=== PATIENT | male | born 1950 | race Two or more races ===

== ENCOUNTER 2018-08-25 10:44 | Outpatient (AMBR) | payer MEDICARE, MEDICAID, SELFPAY ==
--- NOTE | 2018-08-25 11:49 | PTNOTE_ITS ---
PT OP Initial Eval Patient Information Pediatric or Adult Patient: Adult PT >13 Visit Reasons: lumbago with sciatica Medical Diagnosis: m54.41 Lumbago Treatment Dx #1: pain on the R anterior thigh Start of Care: 08/25/18 Date of Onset: 07/25/2018 Initial Assessment Subjective 68 y/o male who had been complaining of L anterior thigh pain and in the groin area. Daughter is with the patient and is interpreting for the patient. He said it has been for years now. He went to different doctors including chiropractor but its not helping him. As of this time he had steroid shot and it does help him temporarily. MD states that he will try steroid shot and attempt PT as well hence the referral for Physical therapy. As per patient the pain fluctuates it is better in the morning and worst in the evening. With PS 10/10 as the worst pain and 6/10 as least pain. Xray was done on 05/11/2018 and shows small rounded calcification of the lateral to the roof of the Right acetabulum. Patient has difficulty doing STS due to pain and he has trouble sleeping because of pain. Objective Pain on the groin area on the RLE and radiates towards the anterior thigh. (-) SLR Ms strength on RLE hip flexors 4+/5 ms strength on RLE hip extensors 4+/5 Assessment Patient is showing symptoms of femoroacetabular impingement. Patient will need physical therapy for pain management utilizing modalities, manual therapy. stretching and strengthening ex. Patient were educated that we will attempt 10- 15 tx session and if there are no changes we will refer him back to his PCP. Patient and daughter verbalized understanding. Short Term and Architectural Intern Goals 1. to decrease the frequency of pain and PS to 2/10 to be able for the patient to perform his Functional mobility with less difficulty 2.To increase ms strength on R hip flexors and extensors to 5/5 2. I with HEP Treatment Plan Thera ex Modalities (hmp. us, estim) Manual tx Hep Frequency and Duration 2x/wk x 6 weeks Certification Dates: 08/25/2018 to 11/22/2018
== END 2018-08-25 23:59 | disposition home or self-care (01) ==
PROVIDERS: PCP Family Medicine; Referring Provider Family Medicine; Visit Provider Family Medicine
DX: M54.41 Lumbago with sciatica, right side (principal)
CPT/HCPCS: 97162

== ENCOUNTER 2018-09-22 10:00 | Outpatient (AMBR) | payer MEDICARE, MEDICAID, SELFPAY ==
--- NOTE | 2018-09-01 09:32 | PT.ODAYNRPT ---
PT Outpatient Daily Note Date of Service: September 01, 2018 OP Daily Note Pediatric or Adult Patient: Adult PT >13 Visit Reasons: lumbago Outpatient Physical Therapy Treatment Date: 09/01/18 Subjective: Patient has pain on the R groin area Objective: pls see FS Assessment: Patient were given strengthening ex on RLE and HEP for self stretching. Daughter accompany the patient and were able to interpret for the patient. Patient brought the cd for his imaging and this therapist were able to verify the small calcification on the lateral roof of the acetabulum. Patient has pain on the R groin area. Plan: to continue POC toward goals. Pain Present Currently: Yes Length of Time (minutes) of Treatment: 30 Minutes
--- NOTE | 2018-09-07 14:20 | PT.ODAYNRPT ---
PT Outpatient Daily Note Date of Service: September 07, 2018 OP Daily Note Pediatric or Adult Patient: Adult PT >13 Visit Reasons: lumbago Outpatient Physical Therapy Treatment Date: 09/07/18 Subjective: No new complaints Objective: Pls see FS for therapy procedure Assessment: Patient were given stretching and strengthening ex on BLE focusing more on hip abductors and VMO strengthening. Daughter is with the patient were is interpreting for the patient. Patient needs restbreaks as needed due to fatigue. Patient were educated on self stretching at home. Plan: to continue POC toward goals. Pain Present Currently: Yes Length of Time (minutes) of Treatment: 30 Minutes Office Procedures PT Procedures PT Date of Service: 09/01/18 Therapeutic Exercise 30 minutes: Yes
--- NOTE | 2018-09-07 14:24 | PTNOTE_ITS ---
PT Outpatient Daily Note Date of Service: September 07, 2018 OP Daily Note Pediatric or Adult Patient: Adult PT >13 Visit Reasons: lumbago Outpatient Physical Therapy Treatment Date: 09/07/18 Subjective: No new complaints Objective: Pls see FS for therapy procedure Assessment: Patient were given stretching and strengthening ex on BLE focusing more on hip abductors and VMO strengthening. Daughter is with the patient were is interpreting for the patient. Patient needs restbreaks as needed due to fa tigue. Patient were educated on self stretching at home. Plan: to continue POC toward goals. Pain Present Currently: Yes Length of Time (minutes) of Treatment: 30 Minutes Office Procedures PT Procedures PT Date of Service: 09/01/18 Therapeutic Exercise 30 minutes: Yes
--- NOTE | 2018-09-09 09:36 | PT.ODAYNRPT ---
PT Outpatient Daily Note Date of Service: September 09, 2018 OP Daily Note Visit Reasons: lumbago Outpatient Physical Therapy Treatment Date: 09/09/18 Subjective: pt doing well as he had no complaints. pt came in with daughter. Objective: see flow sheet. Assessment: pt demonstrates good mobility with getting on and off the TG machine with no assistance. pt had difficulty understanding the monster walks using thera band. needs lot of demonstration and cuing from daughter as well. during bridges on the bed he did well as he has good mobility and ROM of the hips. at times pt made facial expressions and daughter says it's from fatigue early this morning. Plan: continue POC per PT. Length of Time (minutes) of Treatment: 30 Minutes Office Procedures PT Procedures PT Date of Service: 09/01/18 Therapeutic Exercise 30 minutes: Yes PT Procedures PT Date of Service: 09/07/18 Therapeutic Exercise 30 minutes: Yes PT Procedures PT Date of Service: 09/09/18 Therapeutic Exercise 30 minutes: Yes
--- NOTE | 2018-09-15 12:20 | PTNOTE_ITS ---
PT Outpatient Daily Note Date of Service: September 15, 2018 OP Daily Note Visit Reasons: lumbago Outpatient Physical Therapy Treatment Date: 09/15/18 Subjective: pt came in with daughter and . had no complaints. Objective: see flow sheet. Assessment: pt did improve on monster walks although he twists hips a bit too m uch. added ankle weights to some exercises to increase strength in which pt tolerated well. 2# ankle weights were too easy for pt so increased to 4#. pt 4# weight seemed to be fair not too easy nor heavy. pt is able to get on and off the bed and TG with no difficulty. Plan: continue POC per PT. Length of Time (minutes) of Treatment: 30 Minutes Office Procedures PT Procedures PT Date of Service: 09/01/18 Therapeutic Exercise 30 minutes: Yes PT Procedures PT Date of Service: 09/07/18 Therapeutic Exercise 30 minutes: Yes PT Procedures PT Date of Service: 09/09/18 Therapeutic Exercise 30 minutes: Yes PT Procedures PT Date of Service: 09/15/18 Therapeutic Exercise 30 minutes: Yes
--- NOTE | 2018-09-22 10:50 | PT.ODAYNRPT ---
PT Outpatient Daily Note Date of Service: September 22, 2018 OP Daily Note Visit Re[facility]: [facility] Outpatient Physical Therapy Treatment Date: 09/22/18 Subjective: pt doing well as he denied hip pain upon visit. per daughter translating. Objective: see flow sheet. Assessment: noted some facial expressions during SLR while using ankle weights. pt had no control of the leg coming back down which could have been increasing pain/discomfort. advised pt to slow down as he brings the leg back down. he denied the ankle weight being heavy as it as 3#. pt tends to flex the knee with the exercises. with cuing he can extend the knee but after a few reps he goes back to flexing the knee again. Plan: continue POC per PT. Length of Time (minutes) of Treatment: 30 Minutes Office Procedures PT Procedures PT Date of Service: 09/01/18 Therapeutic Exercise 30 minutes: Yes PT Procedures PT Date of Service: 09/07/18 Therapeutic Exercise 30 minutes: Yes PT Procedures PT Date of Service: 09/09/18 Therapeutic Exercise 30 minutes: Yes PT Procedures PT Date of Service: 09/22/18 Therapeutic Exercise 30 minutes: Yes PT Procedures PT Date of Service: 09/15/18 Therapeutic Exercise 30 minutes: Yes
--- NOTE | 2018-09-22 10:55 | PTNOTE_ITS ---
PT Outpatient Daily Note Date of Service: September 22, 2018 OP Daily Note Visit Reasons: lumbanner Outpatient Physical Therapy Treatment Date: 09/22/18 Subjective: pt doing well as he denied hip pain upon visit. per daughter translating. Objective: see flow sheet. Assessment: noted some facial expressions during SLR while using ankle weights. pt had no control of the leg coming back down which could have been increasing pain/discomfort. advised pt to slow down as he brings the leg back down. he denied the ankle weight being heavy as it as 3#. pt tends to flex the knee with the exercises. with cuing he can extend the knee but after a few reps he goes back to flexing the knee again. Plan: continue POC per PT. Length of Time (minutes) of Treatment: 30 Minutes Office Procedures PT Procedures PT Date of Service: 09/01/18 Therapeutic Exercise 30 minutes: Yes PT Procedures PT Date of Service: 09/07/18 Therapeutic Exercise 30 minutes: Yes PT Procedures PT Date of Service: 09/09/18 Therapeutic Exercise 30 minutes: Yes PT Procedures PT Date of Service: 09/22/18 Therapeutic Exercise 30 minutes: Yes PT Procedures PT Date of Service: 09/15/18 Therapeutic Exercise 30 minutes: Yes
== END 2018-09-25 23:59 | disposition home or self-care (01) ==
PROVIDERS: PCP Family Medicine; Referring Provider Family Medicine; Visit Provider Family Medicine
DX: M54.41 Lumbago with sciatica, right side (principal); M25.551 Pain in right hip
CPT/HCPCS: 97110

== ENCOUNTER 2020-04-26 08:52 | Outpatient (AMBR) | payer MEDICARE, MEDICAID, SELFPAY ==
--- NOTE | 2020-04-22 09:29 | PT.OIERPT ---
PT OP Initial Eval Patient Information Visit Reasons: right shoulder Medical Diagnosis: M25.511 Treatment Dx #1: R shoulder pain Start of Care: 04/22/20 Date of Onset: 2 months ago Initial Assessment Subjective Pt is 69 yr old Welsh speaking male here with his dtr to interpret with c/o R shoulder pain x8 weeks. Insidious onset, increased pain with lifting and sleeping on R side. He is retired and does HH chores and shopping during the day. Pt feels limited with lifting, gardening, reaching OH. PLOF: pt had full use of R shoulder with lifting and HH chores. PMH: cardiac stent 02/03/20, HTN, OA Imaging: X-rays in EMR Pt goal: less shoulder pain in order to use shoulder Objective R shoulder AROM: FF: 105 deg Abd: 90 deg with pain ER: 85 deg HBB: to R iliac crest with pain Strength: 3+/5 in all planes PROM: first resistance to end-range pain especially into abduction Painful arc: positive Impingement sign: positive Hadley Will: positive Melara's: positive Full can: positive TTP: bicipital groove moderate Assessment Pt presents with positive impingement testing and pain around proximal long head biceps region with decreased ROM, strength of R shoulder. Pt requires skilled therapy in order to reduce pain and improve ROM and strength and has fair/good rehab potential. Eval followed by HEP with materials. Short Term and Network Services Project Manager Goals 1. Ind with HEP 2. Improved AROM of R shoulder to at least 135 deg FF, 125 deg abduction and 90 deg ER 3. Improved HBB ROM to L3 4. Pt will reach OH x10 with <=4/10 pain Treatment Plan 90 day POC that may include following Rx: 1. Manual therapy 2. Therex 3. Modalities as indicated, moist heat pack, ice, electrical stimulation, Frequency and Duration 2x a week for 6 weeks Certification Dates: 04/22/20 to 07/21/20 Office Procedures PT Procedures PT Date of Service: 04/22/20 OP PT Eval Mod Complex 30 minutes: Yes
--- NOTE | 2020-04-26 09:44 | PT.ODAYNRPT ---
PT Outpatient Daily Note Date of Service: 04/26/2020 OP Daily Note Visit Reasons: right shoulder Outpatient Physical Therapy Treatment Date: 04/26/20 Subjective: pt came in with and daughter. pt states his shoulder feels ok upon visit. daughter needed for translation. Objective: see flow sheet. Assessment: pt demonstrates good mobility as the exercises seem easy for him to as he denies increase in pain. explained to daughter and pt that we can progress exercises as he continues to come also depending on he is feeling each visit. no lifting involved today with exercises as it limited due to pain per daughter. all ther ex was AAROM with wand or SB or pulleys. overall pt did well he tolerated all ther ex with good ROM and no difficulty with the ones he did today. Plan: continue POC per PT. Length of Time (minutes) of Treatment: 30 Minutes Office Procedures PT Procedures PT Date of Service: 04/22/20 OP PT Eval Mod Complex 30 minutes: Yes PT Procedures PT Date of Service: 04/26/20 Therapeutic Exercise 30 minutes: Yes
== END 2020-04-27 23:59 | disposition home or self-care (01) ==
PROVIDERS: PCP Pediatrics; Referring Provider Pediatrics; Visit Provider Pediatrics
DX: M25.511 Pain in right shoulder (principal); I10 Essential (primary) hypertension
CPT/HCPCS: 97110; 97162

== ENCOUNTER 2020-05-27 08:42 | Outpatient (AMBR) | payer MEDICARE, MEDICAID, SELFPAY ==
--- NOTE | 2020-05-02 19:50 | PT.ODAYNRPT ---
PT Outpatient Daily Note Date of Service: 05/02/20 OP Daily Note Visit Reasons: right shoulder pain Outpatient Physical Therapy Treatment Date: 05/02/20 Subjective: The shoulder is about the same as last time Objective: See F/S for therex MHP during wand therex Assessment: Good therex tolerance with low tissue irritability. Plan: Continue per POC Length of Time (minutes) of Treatment: 30 Minutes Office Procedures PT Procedures PT Date of Service: 05/02/20 Therapeutic Exercise 30 minutes: Yes
--- NOTE | 2020-05-06 18:47 | PT.ODAYNRPT ---
PT Outpatient Daily Note Date of Service: 05/06/20 OP Daily Note Pediatric or Adult Patient: Adult PT >13 Visit Reasons: right shoulder pain Outpatient Physical Therapy Treatment Date: 05/06/20 Subjective: No significant shoulder pain today, doing ok Objective: See F/S for therex MHP during wand therex Assessment: Good therex tolerance with low tissue irritability. Plan: Continue per POC Length of Time (minutes) of Treatment: 30 Minutes Office Procedures PT Procedures PT Date of Service: 05/02/20 Therapeutic Exercise 30 minutes: Yes PT Procedures PT Date of Service: 05/06/20 Therapeutic Exercise 30 minutes: Yes
--- NOTE | 2020-05-10 09:56 | PT.ODAYNRPT ---
PT Outpatient Daily Note Date of Service: 05/10/2020 OP Daily Note Visit Reasons: right shoulder pain Outpatient Physical Therapy Treatment Date: 05/10/20 Subjective: per daughter translation pt does feel the difference in his shoulder and feels it's helping his shoulder pain. Objective: see flow sheet. Assessment: added thera band exercises in which pt had no issue performing as it seemed easy for him. pt completes the reps with fast pace and needs to slow down in order to have better control. as the reps continue the form tends to fade and needs cuing to correct again. no complaints during and after exercise. while on ice pack pt is using the thera bar in which it was a little challenging but he completed all reps. Plan: continue POC per PT. Length of Time (minutes) of Treatment: 30 Minutes Office Procedures PT Procedures PT Date of Service: 05/02/20 Therapeutic Exercise 30 minutes: Yes PT Procedures PT Date of Service: 05/10/20 Therapeutic Exercise 30 minutes: Yes PT Procedures PT Date of Service: 05/06/20 Therapeutic Exercise 30 minutes: Yes
--- NOTE | 2020-05-16 13:05 | PT.ODAYNRPT ---
PT Outpatient Daily Note Date of Service: 05/16/2020 OP Daily Note Visit Reasons: right shoulder pain Outpatient Physical Therapy Treatment Date: 05/16/20 Subjective: pt doing good as he says his shoulder is feeling better per daughter translating. Objective: see flow sheet. Assessment: pt completes the reps too fast and needs to slow down. the fast pace causes poor form. with shoulder rows he tends to flex the elbows and no so much of the mid back muscle contraction. could be that they are easy for him or just not understanding the form. addded single arm punches with same thera band in which he still needs more practice. he tends to sway his body while ther band ther ex. Plan: continue POC per PT. Length of Time (minutes) of Treatment: 30 Minutes STOCK HOUSE WORKER Service Modifier Method I: Divide the number of min of care provided by the STOCK HOUSE WORKER/CONFERENCE CONCIERGE by the total min of care provided then multiply by 100. If greater than 11 percent modifier is required. Method II: Divide the total time of care provided to patient by 10 (round to the nearest whole number) and add 1 min. to set the minimum time requirement. If treatment total was 60 min., then 10% of 6 min Did STOCK HOUSE WORKER provide more than 10% of the care?: Yes PT CQ modifier applied: CQ Modifier applied Office Procedures PT Procedures PT Date of Service: 05/02/20 Therapeutic Exercise 30 minutes: Yes PT Procedures PT Date of Service: 05/10/20 Therapeutic Exercise 30 minutes: Yes PT Procedures PT Date of Service: 05/16/20 Therapeutic Exercise 30 minutes: Yes PT Procedures PT Date of Service: 05/06/20 Therapeutic Exercise 30 minutes: Yes
--- NOTE | 2020-05-22 16:04 | PT.ODAYNRPT ---
PT Outpatient Daily Note Date of Service: 05/22/20 OP Daily Note Visit Reasons: right shoulder pain Outpatient Physical Therapy Treatment Date: 05/22/20 Subjective: Pt has pain with reaching OH and points to the long head biceps, A/C joint and posterior deltoid as sites of pain. Objective: See F/S for therex MHP during wand therex Assessment: Good therex tolerance with low tissue irritability. Plan: Continue per POC Length of Time (minutes) of Treatment: 30 Minutes Office Procedures PT Procedures PT Date of Service: 05/02/20 Therapeutic Exercise 30 minutes: Yes PT Procedures PT Date of Service: 05/10/20 Therapeutic Exercise 30 minutes: Yes PT Procedures PT Date of Service: 05/16/20 Therapeutic Exercise 30 minutes: Yes PT Procedures PT Date of Service: 05/06/20 Therapeutic Exercise 30 minutes: Yes PT Procedures PT Date of Service: 05/22/20 Therapeutic Exercise 30 minutes: Yes
--- NOTE | 2020-05-27 20:02 | PT.ODAYNRPT ---
PT Outpatient Daily Note Date of Service: 05/27/20 OP Daily Note Pediatric or Adult Patient: Adult PT >13 Visit Reasons: right shoulder pain Outpatient Physical Therapy Treatment Date: 05/27/20 Subjective: Pt has mild pain with reaching OH and points to the long head biceps, A/C joint and posterior deltoid as sites of pain. Not too bad he says. Objective: See F/S for therex Assessment: Good therex tolerance with low tissue irritability. Plan: Continue per POC Length of Time (minutes) of Treatment: 30 Minutes Office Procedures PT Procedures PT Date of Service: 05/02/20 Therapeutic Exercise 30 minutes: Yes PT Procedures PT Date of Service: 05/10/20 Therapeutic Exercise 30 minutes: Yes PT Procedures PT Date of Service: 05/16/20 Therapeutic Exercise 30 minutes: Yes PT Procedures PT Date of Service: 05/27/20 Therapeutic Exercise 30 minutes: Yes PT Procedures PT Date of Service: 05/06/20 Therapeutic Exercise 30 minutes: Yes PT Procedures PT Date of Service: 05/22/20 Therapeutic Exercise 30 minutes: Yes
== END 2020-05-27 09:05 | disposition home or self-care (01) ==
PROVIDERS: PCP Pediatrics; Referring Provider Pediatrics; Visit Provider Pediatrics
DX: M25.511 Pain in right shoulder (principal); I10 Essential (primary) hypertension; M25.811 Other specified joint disorders, right shoulder
CPT/HCPCS: 97110

== ENCOUNTER 2020-07-04 09:36 | Outpatient (AMBR) | payer MEDICARE, MEDICAID, SELFPAY ==
--- NOTE | 2020-07-02 18:17 | PT.ODAYNRPT ---
PT Outpatient Daily Note Date of Service: 07/02/20 OP Daily Note Visit Reasons: right shoulder pain Outpatient Physical Therapy Treatment Date: 07/02/20 Subjective: Overall better with less shoulder pain since resuming therapy. Objective: See F/S for therex Assessment: Good response to therex to reduce R shoulder pain. Plan: Reassess Length of Time (minutes) of Treatment: 30 Minutes Office Procedures PT Procedures PT Date of Service: 07/02/20 Therapeutic Exercise 30 minutes: Yes
--- NOTE | 2020-07-04 17:38 | PT.ODS1RPT ---
PT OP Progress/Discharge Note Date of Service: 07/04/20 Progress Note/DC Note Progress Note/Discharge Note: Progress Note Patient Information Pediatric or Adult Patient: Adult PT >13 Visit Reasons: right shoulder pain Service Continue Service or Discharge: Continue Service Status Subjective: Overall better with less shoulder pain since resuming therapy. He wants to see how it feels over the next few days and decide if he wants to continue therapy. Objective: R shoulder AROM: FF: 130 deg Abd: 110 deg Erot: 80 deg Strength: 4-/5 in FF, abd and Erot Assessment: Pt has attended 12/ Rx visits with good response to therex to reduce R shoulder pain consistent with shoulder impingement, possibly OA. Pt would benefit from continued therapy to improve abduction and Erot ROM to meet goal. Plan: Extend POC dates from 07/21/20 to 08/21/20 and by 6 visits to continue therapy Office Procedures PT Procedures PT Date of Service: 07/02/20 Therapeutic Exercise 30 minutes: Yes PT Procedures PT Date of Service: 07/04/20 Therapeutic Exercise 30 minutes: Yes
== END 2020-07-28 23:59 | disposition home or self-care (01) ==
PROVIDERS: PCP Internal Medicine; Referring Provider Internal Medicine; Visit Provider Internal Medicine
DX: M25.511 Pain in right shoulder (principal); I10 Essential (primary) hypertension
CPT/HCPCS: 97110

== ENCOUNTER 2021-05-14 08:28 | Outpatient (AMBR) | payer MEDICARE, MEDICAID, SELFPAY ==
--- NOTE | 2021-05-01 18:50 | PT.OIERPT ---
PT OP Initial Eval Patient Information Visit Reasons: Gait abnormality Medical Diagnosis: gait abnormality Treatment Dx #1: same Start of Care: 05/01/21 Date of Onset: 8 weeks ago Initial Assessment Subjective Pt is 70 yr old Estonian speaking male who c/o B LE pain and difficulty walking worse over the past 8 weeks. Pt says the L knee hurts and the R hip in the groin region when he bends the hip. PLOF: pt was independent with community mobility without pain PMH: HTN Imaging: none reported Pt goal: to walk without pain Objective R hip ArOM: Strength: Flexion: 95 deg 4-/5 with pain Abduction: full IR/ER: full L hip ArOM: full and painfree L knee strength: Quads: 4-/5 with pain HS: 4/5 no pain Assessment Pt presents ambulating with symmetrical pattern but c/o R hip and L knee pain that limits distance. No balance deficits noted. He requires skilled therapy in order to improve ambulatory distance and has fair rehab potential. Short Term and Flight Line Service Attendant Goals 1. Ind with HEP 2. Improved gait distance to at least 30 minutes in order to grocery shop 3. Pt will squat to 50% depth to pick things up without pain x3 Treatment Plan 90 day POC in order to complete visits. Pt requires skilled therapy in order to increase strength, decrease pain and address aforementioned impairments. Rx may consist of Therex, Manual therapy, Neuromuscular re-education, Gait training. Modalities as indicated-moist heat packs, ice packs, mechanical traction, estim Frequency and Duration 2x a week for 6 weeks Certification Dates: 05/01/21 to 07/31/21 Office Procedures PT Treatments PT Date of Service: 05/01/21 OP PT Eval Mod Complex 30 minutes: Yes
--- NOTE | 2021-05-05 09:54 | PT.ODAYNRPT ---
PT Outpatient Daily Note Date of Service: 05/05/2021 OP Daily Note Visit Reasons: Gait abnormality Outpatient Physical Therapy Treatment Date: 05/05/21 Subjective: Pt [place] speaking reports he has pain and pointing to his R quads/adductors and L knee. Objective: See flow chart for therex. MT: STM w/ graston R quads,adductors and L knee x 10mins. Assessment: Muscle tension to R adductors, R quads and L quads. Min TTP to R adductors. Pt performed static and dynamic balance well w/ out complaints. Pt ambulates w/ little to no heel strike on B foot. Plan: Cont POC per PT. Length of Time (minutes) of Treatment: 30 Minutes Office Procedures PT Treatments PT Date of Service: 05/01/21 OP PT Eval Mod Complex 30 minutes: Yes PT Treatments PT Date of Service: 05/05/21 Therapeutic Exercise 15 minutes: Yes Manual Wire Coating Operator Metal 15 minutes: Yes
--- NOTE | 2021-05-07 09:56 | PT.ODAYNRPT ---
PT Outpatient Daily Note Date of Service: 05/07/2021 OP Daily Note Visit Reasons: Gait abnormality Outpatient Physical Therapy Treatment Date: 05/07/21 Subjective: Pt Estonian speaking reports he has pain on his R LE at the hip and knee and reports L LE is doing good. Objective: See flow chart for therex. Assessment: Pt denied MT today and prefers to do exercise. Pt able to balance on rocker board w/ R hand 3finger support on parallel bars for 3 mins. Pt tolerated HMP well w/out complaints. Plan: Cont POC per PT. Length of Time (minutes) of Treatment: 30 Minutes Office Procedures PT Treatments PT Date of Service: 05/01/21 OP PT Eval Mod Complex 30 minutes: Yes PT Treatments PT Date of Service: 05/07/21 Therapeutic Exercise 30 minutes: Yes PT Treatments PT Date of Service: 05/05/21 Therapeutic Exercise 15 minutes: Yes Manual Injection Specialist 15 minutes: Yes
--- NOTE | 2021-05-12 13:05 | PTNOTE_ITS ---
PT Outpatient Daily Note Date of Service: 05/12/2021 OP Daily Note Visit Reasons: Gait abnormality Outpatient Physical Therapy Treatment Date: 05/12/21 Subjective: pt had no complaints upon approach. Objective: see flow sheet. Assessment: added thera band in light resistance for his walking exercises in which the side steps was making him fatigue. pt had fair balance on the board with no hands and was able to maintain position for the time frame. pt completed all ther ex with no complaints and states he is fine. Plan: continue POC per PT. Length of Time (minutes) of Treatment: 30 Minutes Office Procedures PT Treatments PT Date of Service: 05/01/21 OP PT Eval Mod Complex 30 minutes: Yes PT Treatments PT Date of Service: 05/07/21 Therapeutic Exercise 30 minutes: Yes PT Treatments PT Date of Service: 05/05/21 Therapeutic Exercise 15 minutes: Yes Manual Electrical Hardware Engineer 15 minutes: Yes PT Treatments PT Date of Service: 05/12/21 Therapeutic Exercise 30 minutes: Yes
--- NOTE | 2021-05-14 09:04 | PT.ODAYNRPT ---
PT Outpatient Daily Note Date of Service: 05/14/21 OP Daily Note Visit Reasons: Gait abnormality Outpatient Physical Therapy Treatment Date: 05/14/21 Subjective: Pt arrives 10 minutes late due to traffic Objective: See F/S for therex Assessment: Pt has good strength and balance on uneven and even surfaces and with partial body weight squatting on total gym Plan: Continue per POC Length of Time (minutes) of Treatment: 30 Minutes Office Procedures PT Treatments PT Date of Service: 05/01/21 OP PT Eval Mod Complex 30 minutes: Yes PT Treatments PT Date of Service: 05/07/21 Therapeutic Exercise 30 minutes: Yes PT Treatments PT Date of Service: 05/05/21 Therapeutic Exercise 15 minutes: Yes Manual Hydropulper Operator 15 minutes: Yes PT Treatments PT Date of Service: 05/12/21 Therapeutic Exercise 30 minutes: Yes PT Treatments PT Date of Service: 05/14/21 Therapeutic Exercise 30 minutes: Yes
== END 2021-05-27 23:59 | disposition home or self-care (01) ==
PROVIDERS: PCP Internal Medicine; Referring Provider Internal Medicine; Visit Provider Internal Medicine
DX: R26.2 Difficulty in walking, not elsewhere classified (principal); M25.551 Pain in right hip; M25.562 Pain in left knee; I10 Essential (primary) hypertension
CPT/HCPCS: 97110; 97140; 97162

== ENCOUNTER 2021-06-09 09:26 | Outpatient (AMBR) | payer MEDICARE, MEDICAID, SELFPAY ==
--- NOTE | 2021-05-29 08:55 | PT.ODAYNRPT ---
PT Outpatient Daily Note Date of Service: 05/29/21 OP Daily Note Visit Reasons: Gait abnormality Outpatient Physical Therapy Treatment Date: 05/29/21 Subjective: Pt c/o pain and points to the L peroneals distally Objective: See F/S for therex MT: STM L distal peroneals with [place] x7' Assessment: Pt has moderate TTP of L distal peroneals but good balance on uneven surfaces in tandem stance. Plan: Continue per POC Length of Time (minutes) of Treatment: 30 Minutes Office Procedures PT Treatments PT Date of Service: 05/29/21 Therapeutic Exercise 30 minutes: Yes
--- NOTE | 2021-06-02 10:41 | PT.ODS1RPT ---
PT OP Progress/Discharge Note Date of Service: 06/02/21 Progress Note/DC Note Progress Note/Discharge Note: Progress Note Patient Information Visit Reasons: Gait abnormality Service Continue Service or Discharge: Continue Service Status Subjective: Pt c/o pain and points to the L distal peroneals and Achilles on lateral side that are mod TTP with MT. Objective: See F/S for therex MT: StM distal peroneals for 7' Assessment: Pt has attended the eval and 6 Rx visits with good therex tolerance with lunging and squatting. The TTP of the L distal peroneals and lateral Achilles continues. He would benefit from continued therapy in order to reduce pain and meet goals. Plan: Continue per POC Office Procedures PT Treatments PT Date of Service: 06/02/21 Therapeutic Exercise 30 minutes: Yes PT Treatments PT Date of Service: 05/29/21 Therapeutic Exercise 30 minutes: Yes
--- NOTE | 2021-06-04 11:13 | PT.ODAYNRPT ---
PT Outpatient Daily Note Date of Service: 06/04/21 OP Daily Note Pediatric or Adult Patient: Adult PT >13 Visit Reasons: Gait abnormality Outpatient Physical Therapy Treatment Date: 06/04/21 Subjective: Pt c/o pain and points to the L distal peroneals and Achilles on lateral side that are mod TTP with MT but less than last visit. Objective: See F/S for therex MT: StM distal peroneals for 7' Assessment: The TTP of the L distal peroneals and lateral Achilles is less after last visit MT. Good therex tolerance with squatting and lunging therex. Plan: Continue per POC Length of Time (minutes) of Treatment: 30 Minutes Office Procedures PT Treatments PT Date of Service: 06/02/21 Therapeutic Exercise 30 minutes: Yes PT Treatments PT Date of Service: 05/29/21 Therapeutic Exercise 30 minutes: Yes PT Treatments PT Date of Service: 06/04/21 Therapeutic Exercise 30 minutes: Yes
--- NOTE | 2021-06-09 09:54 | PT.ODAYNRPT ---
PT Outpatient Daily Note Date of Service: 06/09/21 OP Daily Note Pediatric or Adult Patient: Adult PT >13 Visit Reasons: Gait abnormality Outpatient Physical Therapy Treatment Date: 06/09/21 Subjective: Pt reports the L distal peroneals and Achilles on lateral side are hurting less often. Pt wanted to leave early today from therapy. Objective: See F/S for therex Assessment: Good therex tolerance with squatting and lunging therex. Plan: Continue per POC. Pt didn't schedule, will call to schedule Length of Time (minutes) of Treatment: 25 Minutes Office Procedures PT Treatments PT Date of Service: 06/02/21 Therapeutic Exercise 30 minutes: Yes PT Treatments PT Date of Service: 06/09/21 Therapeutic Exercise 30 minutes: Yes PT Treatments PT Date of Service: 05/29/21 Therapeutic Exercise 30 minutes: Yes PT Treatments PT Date of Service: 06/04/21 Therapeutic Exercise 30 minutes: Yes
--- NOTE | 2021-10-01 08:30 | PT.ODS1RPT ---
PT OP Progress/Discharge Note Date of Service: 10/01/21 Progress Note/DC Note Progress Note/Discharge Note: DC Note Patient Information Visit Reasons: Gait abnormality Service Continue Service or Discharge: Discharge Discharge Date: 10/01/21 Status Assessment: Pt attended the initial evaluation and 9 Rx visits and never returned to be reassessed or called to schedule a follow-up appointment within the past 30 days. Pt?s attendance is not consistent enough to make progress with goals. Pt will be D/C'd according to non-compliance with attendance policy. Plan: D/C Office Procedures PT Treatments PT Date of Service: 06/02/21 Therapeutic Exercise 30 minutes: Yes PT Treatments PT Date of Service: 06/09/21 Therapeutic Exercise 30 minutes: Yes PT Treatments PT Date of Service: 05/29/21 Therapeutic Exercise 30 minutes: Yes PT Treatments PT Date of Service: 06/04/21 Therapeutic Exercise 30 minutes: Yes
== END 2021-06-27 23:59 | disposition home or self-care (01) ==
PROVIDERS: PCP Internal Medicine; Referring Provider Internal Medicine; Visit Provider Internal Medicine
DX: R26.2 Difficulty in walking, not elsewhere classified (principal); M25.551 Pain in right hip; M25.562 Pain in left knee; I10 Essential (primary) hypertension
CPT/HCPCS: 97110

== ENCOUNTER → 2024-09-07 | Outpatient (CLI) | payer MEDICARE, MEDICAID, SELFPAY ==
[2024-09-07 17:44] LABS: Basophils % (Auto) 1 % (0-2.5); Eosinophils # (Auto) 0.2 Thou/mm3 (0.0-0.5); Eosinophils % (Auto) 4 % (0-10); Hematocrit 49.3 % (41.0-53.0); Hemoglobin 16.5 g/dL (13.5-16.0); Immature Granulocytes % (Auto) 1 % (0-0); Immature Granulocytes Auto 0.03 Thou/mm3 (0.00-0.00); Lymphocytes # (Auto) 1.7 Thou/mm3 (1.0-4.8); Lymphocytes % (Auto) 38 % (10-50); Mean Corpuscular HGB Conc 33.5 g/dl (31.0-37.0); Mean Corpuscular Hemoglobin 28.9 pg (25.0-35.0); Mean Corpuscular Volume 87 fL (80-100); Monocytes # (Auto) 0.4 Thou/mm3 (0.0-0.8); Monocytes % (Auto) 10 % (0-12); Neutrophils % (Auto) 47 % (37-80); Nucleated Red Blood Cell % 0 /100 WBC (0); Platelet Count 211 Thou/mm3 (140-440); RDW Standard Deviation 39.3 fL (35.1-43.9); White Blood Count 4.4 Thou/mm3 (3.8-10.6)
[2024-09-07 18:06] LABS: Glucose Estimated Average 103 mg/dL (80-131); Hemoglobin A1C 5.2 % Hgb (4.8-6.0)
[2024-09-07 18:09] LABS: Prostate Specific Antigen 3.51 ng/mL (0-4.00)
[2024-09-07 18:14] LABS: Alanine Aminotransferase 25 U/L (10-49); Albumin, Serum 4.3 gm/dL (3.4-4.8); Albumin/Globulin Ratio 1.6 (1.2-2.2); Alkaline Phosphatase 86 U/L (46-116); Anion Gap 6 (7-16); Aspartate Amino Transferase 24 U/L (0-34); BUN/Creatinine Ratio 14 Ratio (12-20); Bilirubin,Total 0.9 mg/dL (0.3-1.2); Blood Urea Nitrogen 18 mg/dL (9-23); Calcium 9.6 mg/dL (8.3-10.6); Calcium (Corrected) 9.6 mg/dL (8.5-10.1); Cardiac Risk Estimate 5.3 RATIO (4.0-6.7); Chloride 101 mMol/L (98-107); Cholesterol 196 mg/dL (132-200); Creatinine (Component) 1.3 mg/dL (0.6-1.3); Globulin 2.7 gm/dL (2.3-3.5); Glucose 80 mg/dL (74-106); HDL Cholesterol 37 mg/dL (40-60); LDL Cholesterol,Calculated 126 mg/dL (0-130); Osmolality,Calculated 278 (275-295); Potassium 4.3 mMol/L (3.4-5.1); Sodium 139 mMol/L (136-145); Thyroid Stimulating Hormone 2.12 uIU/mL (0.55-4.78); Triglycerides 163 mg/dL (30-150); Uric Acid 6.5 mg/dL (3.7-9.2); eGFR 58 See Note
== END | disposition home or self-care (01) ==
PROVIDERS: PCP Internal Medicine; Referring Provider Internal Medicine; Visit Provider Internal Medicine
DX: I11.0 Hypertensive heart disease with heart failure (principal); E11.9 Type 2 diabetes mellitus without complications; N40.1 Benign prostatic hyperplasia with lower urinary tract symptoms; E55.9 Vitamin D deficiency, unspecified; E78.2 Mixed hyperlipidemia; E03.9 Hypothyroidism, unspecified
CPT/HCPCS: 36415; 80053; 80061; 82306; 83036; 84153; 84439; 84443; 84550; 85025

== ENCOUNTER → 2024-10-25 | Outpatient (CLI) | payer MEDICARE, MEDICAID, SELFPAY ==
[2024-10-30 07:21] LABS: Fecal Globin Result NOT DETECTED (NOT DETECTED)
== END | disposition home or self-care (01) ==
PROVIDERS: Referring Provider Internal Medicine; Visit Provider Internal Medicine
DX: I10 Essential (primary) hypertension (principal)
CPT/HCPCS: 82274; G0328